=== PATIENT | male | born 1965 | race African-American/Black ===

== ENCOUNTER 2016-11-07 08:21 | Emergency (ER) | payer MEDICARE, MEDICAID ==
[~2016-11-07] VITALS: Ht 190.5 cm; Wt 91.0 kg
[2016-11-07] MEDS ORDERED: PHENOBARBITOL (08:41)
[2016-11-07] MEDS ORDERED: DIVA-18 PO (08:41)
[2016-11-07] MEDS ORDERED: IBUPROFEN 600MG TABLET PO ONE (10:30)
[2016-11-07 10:33] VITALS: BP 150/105
== END 2016-11-07 11:34 | disposition home or self-care (01) ==
LOC: ER 08:34
DX: S43.401A Unspecified sprain of right shoulder joint, initial encounter (principal); Y93.89 Activity, other specified; Y99.9 Unspecified external cause status; Y92.89 Other specified places as the place of occurrence of the external cause
CPT/HCPCS: 73030; 99284

== ENCOUNTER → 2017-03-26 | Outpatient (CLI) | payer MEDICARE, MEDICAID ==
[~2017-03-26] MED LIST: DIVA-18 PO; PHENOBARBITOL
== END | disposition home or self-care (01) ==
LOC: RAD 11:32
PROVIDERS: ATTEND Internal Medicine Pulmonary Disease
DX: Z01.818 Encounter for other preprocedural examination (principal); I10 Essential (primary) hypertension
CPT/HCPCS: 71020; 93005